=== PATIENT | male | born 1985 | race Hispanic/Latino ===

== ENCOUNTER → 2018-02-26 | Outpatient (CLI) | payer OTHER | LOC: M RAD 09:08 | DX: M25.512 Pain in left shoulder (principal); M54.5 Low back pain | CPT/HCPCS: 72110 ==

== ENCOUNTER → 2018-03-14 | Outpatient (CLI) | payer OTHER | LOC: M RAD 09:28 | DX: M25.522 Pain in left elbow (principal) | CPT/HCPCS: 73080 ==